=== PATIENT | male | born 1940 | race Two or more races ===

== ENCOUNTER 2017-10-25 21:10 | Inpatient (IN) | payer OTHER ==
[~2017-10-25] VITALS: Ht 170.2 cm; Wt 62.6 kg
[2017-10-25 22:52] LABS: Urine Bilirubin Negative (Negative); Urine Blood TRACE /uL (Negative); Urine Color Yellow (Yellow); Urine Glucose Normal (Normal); Urine Ketone 1+ (Negative); Urine Mucus FEW (None Seen); Urine Nitrite Negative (Negative); Urine RBC 2 /hpf (0 - 4); Urine Urobilinogen Normal (Negative)
[2017-10-25 22:58] LABS: Potassium 3.4 mmol/L (3.5-5.1)
[2017-10-25 23:01] LABS: Basophils # (auto) 0 uL; Basophils % (auto) 0.5 % (0.0-2.0); Eosinophils # (auto) 0 uL; Hemoglobin 14.5 g/dL (12.2-16.2); Lymphocytes # (auto) 0.8 uL; Lymphocytes % (auto) 12.3 % (10.0-50.0); Mean Corpuscular Hemoglobin 27.9 pg (28.0-32.0); Mean Corpuscular Hgb Conc. 32.9 g/dL (32.0-36.0); Mean Corpuscular Volume 84.6 fL (80.0-100.0); Mean Platelet Volume 7.3 fL (6.9-10.8); Monocytes # (auto) 0.6 uL; Monocytes % (auto) 8.4 % (0.0-12.0); Neutrophils # (auto) 5.3 uL; Neutrophils % (auto) 78.8 % (37.0-80.0); Nucleated Red Blood Cells % 0.1 %; Platelet Count (auto) 217 10^3/uL (140-450); Red Cell Distribution Width 16.3 % (11.8-14.3); White Blood Cell 6.7 10^3/uL (4.4-10.8)
[2017-10-25 23:02] LABS: Albumin 3.6 g/dL (3.4-5.0); BUN/Creatinine Ratio 12.1; Calcium 8.1 mg/dL (8.5-10.1); Magnesium 2.5 mg/dL (1.6-2.6)
[2017-10-25 23:03] LABS: Bilirubin, Total 0.4 mg/dL (0.2-1.0); Total Protein 7.2 g/dL (6.4-8.2)
[2017-10-25 23:16] LABS: INR 1.07 (0.9-1.15); Partial Thromboplastin Time 26.1 sec (22.64-33.71); Prothrombin Time 11.7 sec (9.37-12.3)
[2017-10-25 23:54] LABS: B-Type Natriuretic Peptide 20.23 pg/mL (0-100)
[2017-10-26] MEDS ORDERED: HYDROcodone-ACET 5/325MG TAB PO PRN (02:45)
[2017-10-26] MEDS ORDERED: ACETAMINOPHEN 500 MG TAB PO PRN (02:45)
[2017-10-26] MEDS ORDERED: ONDANSETRON HCL 4 MG/2 ML VIAL IV PRN (02:45)
[2017-10-26] MEDS ORDERED: MORPHINE SULF INJ 2 MG/ML SYRINGE 1ML IV PRN (02:45)
[2017-10-26] MEDS ORDERED: NITROGLYCERIN 0.4 MG SL TAB SL PRN (02:45)
[2017-10-26 03:50] LABS: Basophils # (auto) 0.1 uL; Basophils % (auto) 1.1 % (0.0-2.0); Eosinophils # (auto) 0 uL; Eosinophils % (auto) 0.2 % (0.0-7.0); Hematocrit 40.9 % (41.0-53.0); Hemoglobin 13.7 g/dL (13.5-17.5); Lymphocytes % (auto) 15.6 % (10.0-50.0); Mean Corpuscular Hgb Conc. 33.5 g/dL (32.0-36.0); Mean Corpuscular Volume 83.5 fL (80.0-100.0); Monocytes # (auto) 0.7 uL; Monocytes % (auto) 10.7 % (0.0-12.0); Neutrophils # (auto) 4.7 uL; Neutrophils % (auto) 72.4 % (37.0-80.0); Nucleated Red Blood Cells % 0.2 %; Platelet Count (auto) 193 10^3/uL (140-450); Red Cell Distribution Width 15.7 % (11.8-14.3); White Blood Cell 6.5 10^3/uL (4.4-10.8)
[2017-10-26] MEDS ORDERED: SODIUM CHLORIDE 0.9% 1,000 ML IV SCH ×2 (04:15→11:00)
[2017-10-26] MEDS ORDERED: POTASSIUM CHL 10 Meq TABLET PO ONE (04:15)
[2017-10-26 04:16] LABS: Calcium 8.1 mg/dL (8.5-10.1); Potassium 3.4 mmol/L (3.5-5.1)
[2017-10-26 05:20] LABS: Cholesterol 209 mg/dL (< 200); HDL Cholesterol 90 mg/dL (40-59); LDL Cholesterol 114 mg/dL (< 100); Triglycerides 63 mg/dL (< 150)
[2017-10-26] MEDS ORDERED: ASPirin-EC 81 mg tab PO SCH (10:00)
[2017-10-26] MEDS ORDERED: POTASSIUM CHL 20 Meq TABLET PO ONE (10:45)
[2017-10-26 12:00] VITALS: BP 140/80
[2017-10-26 16:03] VITALS: BP 140/80
[2017-10-26 17:00] VITALS: BP 140/76
[2017-10-26 19:00] VITALS: BP 140/80
[2017-10-26] MEDS ORDERED: ATORVASTATIN 20 MG TAB PO SCH (22:00)
== END 2017-10-26 20:15 | disposition home or self-care (01) | DRG 103 ==
LOC: ER 21:10 → EDBD 21:10 → EDSEX 21:10 → TELE 21:11 → EDUNIT# 21:11 → TELE-WESTW 10-26 09:19
PROVIDERS: ADMIT Nurse Practitioner Family; ATTEND Family Medicine
DX: R51 Headache (principal); N17.9 Acute kidney failure, unspecified; R07.89 Other chest pain; E11.65 Type 2 diabetes mellitus with hyperglycemia; E78.5 Hyperlipidemia, unspecified; E87.6 Hypokalemia; I10 Essential (primary) hypertension; M10.9 Gout, unspecified; Z79.899 Other long term (current) drug therapy
CPT/HCPCS: 36415; 70450; 71010; 80048; 80053; 80061; 80307; 80320; 81001; 82962; 83036; 83735; 83880; 84484; 85025; 85610; 85730; 93005; 96360

== ENCOUNTER 2017-11-15 09:53 | Emergency (ER) | payer OTHER ==
[~2017-11-15] VITALS: Ht 162.6 cm; Wt 68.0 kg
[2017-11-15 10:01] VITALS: BP 123/77
== END 2017-11-15 13:12 | disposition left against medical advice (07) ==
LOC: EDBD 09:53 → ER 09:53
DX: R51 Headache (principal); Z53.21 Procedure and treatment not carried out due to patient leaving prior to being seen by health care provider
CPT/HCPCS: 70450